=== PATIENT | female | born 1975 | race Caucasian/White ===

== ENCOUNTER → 2021-09-15 15:19 | Outpatient (CLI) | payer BC, SELFPAY ==
--- NOTE | ~2021-09-15 | MR_ITS ---
EXAMINATION: MR brain/brain stem wo/w con DATE: 09/15/2021 16:02 INDICATION: Cognitive impairment. Memory loss. TECHNIQUE: Magnetic resonance imaging (MRI) of the brain and brainstem was performed without and with 20 mL MultiHance intravenous contrast. Sequences included sagittal and axial T1-weighted FSE, axial diffusion-weighted FS EPI, axial T2*-weighted GRE, axial T2-weighted FLAIR Propeller, and axial T2-we ighted Propeller. Postcontrast sequences included axial and coronal T1-weighted FSE. Apparent diffusi on coefficient (ADC) maps were created. COMPARISON: None. FINDINGS: There is no intracranial hemorrhage, acute infarction, or abnormal intracranial mass lesion . The ventricles are normal in size. There is mild mucosal thickening in the paranasal sinuses. There is a small left mastoid effusion. The orbits are normal. IMPRESSION: 1. Normal brain. Reviewed, dictated and finalized at location B. LEAD IMPRESSION: 1. Normal brain.
[2021-09-15 15:45] LABS: Estimated Glomerular Filt Rate 44
== END ==
PROVIDERS: PCP Physician Assistant; Visit Provider Physician Assistant
DX: R41.3 Other amnesia (principal)
CPT/HCPCS: 70553; A9577

== ENCOUNTER → 2023-03-14 14:06 | Outpatient (CLI) | payer BC, SELFPAY ==
--- NOTE | ~2023-03-14 | US_ITS ---
US renal BI 03/14/2023 14:20 Procedure: Realtime transabdominal ultrasound of the kidneys and bladder. Indication: Abnormal laboratory results Comparison: No prior studies for comparison. Findings: Renal echotexture is normal bilaterally without hydronephrosis, contour deforming mass or r enal calculus. The right kidney measures 10.3 cm and left kidney measures 9.7 cm. Bladder within nor mal limits. Incidental note is made of fatty infiltration of the liver. Impression: 1: Unremarkable renal ultrasound. No stones, masses or hydronephrosis. Reviewed, dictated and finalized at location B. Impression: 1: Unremarkable renal ultrasound. No stones, masses or hydronephrosis.
== END ==
PROVIDERS: PCP Physician Assistant; Visit Provider Physician Assistant
DX: R79.89 Other specified abnormal findings of blood chemistry (principal)
CPT/HCPCS: 76775

== ENCOUNTER 2024-06-04 11:17 | Outpatient (CLI) | payer BC, SELFPAY ==
--- NOTE | ~2024-06-04 | US_ITS ---
EXAMINATION: US renal BI DATE: 06/04/2024 11:36 INDICATION: Stage IIIB chronic kidney disease TECHNIQUE: Multiple ultrasound grayscale images of the kidneys were obtained. COMPARISON: 03/14/2023 FINDINGS: The right kidney measures 10.4 x 5.1 x 4.0 cm. The left kidney measures 10.0 x 5.3 x 4.9 cm. The kidn eys demonstrate normal echogenicity with diffuse mild bilateral cortical thinning. There is no hydron ephrosis in either kidney. No stones identified. The bladder is normal. IMPRESSION: 1. Bilateral mild diffuse cortical thinning with normal echogenicity. No hydronephrosis. Reviewed, dictated and finalized at location A. IMPRESSION: 1. Bilateral mild diffuse cortical thinning with normal echogenicity. No hydro nephrosis.
== END 2024-06-04 11:18 ==
LOC: MICIMG 11:18
PROVIDERS: PCP Internal Medicine Nephrology; Visit Provider Internal Medicine Nephrology
DX: N18.32 Chronic kidney disease, stage 3b (principal)
CPT/HCPCS: 76775

== ENCOUNTER 2024-06-04 11:19 | Outpatient (CLI) | payer BC, SELFPAY ==
--- NOTE | ~2024-06-04 | XR_ITS ---
3 VIEWS THORACIC SPINE Ordering provider: Genesis Munroe, PAEtta History: . SCIATICA, LEFT FLANK PAIN . Comparison: None. FINDINGS: VERTEBRAL BODIES: Normal height and alignment. No visible fracture or subluxation. Degenerative dave es of the spine. DISK SPACES: Narrowing at multiple levels. SOFT TISSUES: Normal. IMPRESSION: No acute osseous abnormality of the thoracic spine. Reviewed, dictated and finalized at location A.
--- NOTE | ~2024-06-04 | XR_ITS ---
XR abdomen/kub 1V Ordering provider: Genesis Munroe, MEHRDAD History: . SCIATICA, LEFT FLANK PAIN . Comparison: None. FINDINGS: BOWEL: Nonobstructive bowel gas pattern. ORGANOMEGALY: None. SIGNIFICANT PATHOLOGIC CALCIFICATIONS: None. OTHER: No free air is seen under the diaphragm. IMPRESSION: NO ACUTE ABDOMINAL FINDINGS. Reviewed, dictated and finalized at location A.
--- NOTE | ~2024-06-04 | XR_ITS ---
3 VIEWS LUMBAR SPINE Ordering provider: Genesis Munroe, MEHRDAD History: . SCIATICA, LEFT FLANK PAIN . Comparison: None. FINDINGS: VERTEBRAL BODIES: No visible fracture or subluxation. Degenerative changes of the spine. DISK SPACES: Narrowing of the disc L1-L2 and L5-S1. Facet joint disease at the level of L4-L5 and L5- S1 SOFT TISSUES: Normal. IMPRESSION: No acute osseous abnormality lumbar spine. . Reviewed, dictated and finalized at location A.
== END 2024-06-04 11:20 ==
PROVIDERS: PCP Physician Assistant; Visit Provider Physician Assistant
DX: R10.9 Unspecified abdominal pain (principal); M54.31 Sciatica, right side
CPT/HCPCS: 72070; 72100; 74018

== ENCOUNTER 2024-06-30 10:54 | Outpatient (CLI) | payer BC, SELFPAY ==
--- NOTE | ~2024-06-30 | XR_ITS ---
EXAMINATION: XR shoulder LT min 2V DATE: 06/30/2024 11:19 INDICATION: Left shoulder pain. TECHNIQUE: 4 views of left shoulder were obtained. COMPARISON: None. FINDINGS: Alignment is normal. No fracture. There is mild osteoarthritis of glenohumeral joint and ac romioclavicular joint. IMPRESSION: 1. Mild polyarticular osteoarthritis. Reviewed, dictated and finalized at location A.
--- NOTE | ~2024-06-30 | XR_ITS ---
EXAMINATION: XR_[id number]_CR DATE: 06/30/2024 11:19 INDICATION: Radiculopathy, cervical region. TECHNIQUE: 4 views of cervical spine were obtained. COMPARISON: None. FINDINGS: There is 5 degrees levocurvature of cervicothoracic spine. Vertebral body heights are leelee l. There is mildly decreased disc height at C5-C6 and C6-C7. There is multilevel mild facet joint ost eoarthritis. There is mild central canal stenosis at C5-C6. No prevertebral soft tissue swelling. IMPRESSION: 1. Mild cervical spondylosis. Reviewed, dictated and finalized at location A.
== END 2024-06-30 10:55 | disposition home or self-care (01) ==
PROVIDERS: PCP Physician Assistant; Visit Provider Physician Assistant
DX: M19.012 Primary osteoarthritis, left shoulder (principal); M47.22 Other spondylosis with radiculopathy, cervical region
CPT/HCPCS: 72040; 73030

== ENCOUNTER 2024-11-19 08:00 | Outpatient (CLI) | payer BC, SELFPAY ==
--- NOTE | ~2024-11-19 | MR_ITS ---
MRI of the cervical spine Clinical History: Spondylosis Technique: Axial T2-weighted and gradient images, and sagittal T1-weighted, T2-weighted, and STIR dylan ges were acquired. Findings: There is no fracture or subluxation of the cervical spine. There is straightening of normal cervical lordosis. No suspicious bone marrow signal abnormality seen. At C2-C3, there is no disc bulge or herniation. No spinal canal stenosis, cord compression, or neural foraminal narrowing. At C3-C4, there is no significant disc bulge or herniation. No spinal canal stenosis, cord compressio n, or neural foraminal narrowing. At C4-C5, there is no significant disc bulge or herniation. No spinal canal stenosis, cord compressio n, or neural foraminal narrowing. At C5-C6, there is moderate degenerative disc narrowing. There is disc osteophyte complex with mild c anal stenosis and mild flattening of the ventral cord. There is right neural foraminal narrowing. Lef t neural foramen preserved. At C6-C7, there is no significant disc bulge or herniation. No spinal canal stenosis, cord compressio n, or neural foraminal narrowing. No abnormal signal seen in the spinal cord. Paravertebral soft tissues are unremarkable. Impression: Moderate to advanced degenerative spondylitic changes at C5-C6, as detailed above. Reviewed, dictated and finalized at location . ING MACHINE OPERATOR HAND METHOD Impression: Moderate to advanced degenerative spondylitic changes at C5-C6, as detailed abo ve.
--- NOTE | ~2024-11-19 | MR_ITS ---
MRI of the left shoulder Technique: Axial proton-density fat-sat images, coronal proton density fat-sat and T2 fat-sat images, and sagittal T1-weighted and T2 fat-sat images were acquired. Clinical History: Pain Findings: There is minimal AC joint degenerative change. Coracoclavicular, coracoacromial, and coraco humeral ligaments are intact. Supraspinatus and infraspinatus tendons demonstrate mild tendinosis, without partial or full-thicknes s tear. Subscapularis tendon is intact. Tendon of the long head of the biceps is intact. No definite labral tear seen. Inferior glenohumeral ligament is mildly thickened and hyperintense. No significant degenerative turner ge or effusion of the glenohumeral joint. No fluid distention of the subacromial/subdeltoid bursa. No muscle atrophy or edema. Impression: Findings suggestive of adhesive capsulitis. Mild rotator cuff tendinosis. Reviewed, dictated and finalized at [facility]. WRITING EXPERT Impression: Findings suggestive of adhesive capsulitis. Mild rotator cuff tendinosis.
== END 2024-11-19 08:01 | disposition home or self-care (01) ==
LOC: MICIMG 08:01
PROVIDERS: PCP Physician Assistant; Visit Provider Physician Assistant
DX: M75.32 Calcific tendinitis of left shoulder (principal); M47.892 Other spondylosis, cervical region
CPT/HCPCS: 72141; 73221